=== PATIENT | female | born 1985 | race Caucasian/White ===

== ENCOUNTER 2020-03-19 14:28 | Emergency (ER) | payer OTHER ==
[~2020-03-19] VITALS: Ht 157.5 cm; Wt 61.2 kg
[2020-03-19] MEDS ORDERED: CLEOCIN HCL300 MG PO (16:40)
== END 2020-03-19 17:36 | disposition home or self-care (01) ==
LOC: ER 14:28
DX: S61.422A Laceration with foreign body of left hand, initial encounter (principal); W26.0XXA Contact with knife, initial encounter; Y93.89 Activity, other specified; Y92.090 Kitchen in other non-institutional residence as the place of occurrence of the external cause; Y99.8 Other external cause status